=== PATIENT | male | born 1950 | race Caucasian/White ===

== ENCOUNTER 2019-11-28 11:48 | Inpatient (IN) ==
[2019-11-28] MEDS: Carbidopa/Levodopa 25/100 TABLET PO SCH (17:09)
[2019-11-29] MEDS: Acetaminophen 325 MG TABLET PO PRN ×3 (02:44→23:46)
[2019-11-29] MEDS: Aspirin 325 MG TABLET PO SCH (08:31)
[2019-11-29] MEDS: Carbidopa/Levodopa 25/100 TABLET PO SCH ×3 (08:31→16:39)
[2019-11-29] MEDS: Cyanocobalamin (B-12) 1,000 MCG TABLET PO SCH (08:31)
[2019-11-30] MEDS: Acetaminophen 325 MG TABLET PO PRN ×2 (05:46→17:14)
[2019-11-30 08:48] LABS: Basophils % 0.7 %; Eosinophils # 0.1 K/mcL (0.0-0.6); Eosinophils % 2.5 %; Hematocrit 46.3 % (37.5-50.1); Hemoglobin 16.2 g/dL (12.9-16.9); Lymphocytes # 0.9 K/mcL (0.6-4.6); Lymphocytes % 19.5 %; Mean Corpuscular Volume 88.7 fL (83.0-100.0); Mean Platelet Volume 9.7 fL (9.4-12.4); Monocytes # 0.4 K/mcL (0.0-1.3); Monocytes % 8.6 %; Platelet Count 246 K/mcL (140-400); Red Blood Count 5.22 M/mcL (4.19-5.50); Red Cell Distribution Width 12.2 % (11.5-14.5); Segmented Neutrophils % 68.7 %; White Blood Count 4.4 K/mcL (4.3-11.1)
[2019-11-30] MEDS: Aspirin 325 MG TABLET PO SCH (08:53)
[2019-11-30] MEDS: Cyanocobalamin (B-12) 1,000 MCG TABLET PO SCH (08:53)
[2019-11-30] MEDS: Carbidopa/Levodopa 25/100 TABLET PO SCH ×3 (08:55→17:14)
[2019-11-30 09:12] LABS: Alanine Aminotransferase 12 Units/L (7-52); Albumin 4.1 g/dL (3.5-5.7); Albumin/Globulin Ratio 1.9 (1.1-2.2); Alkaline Phosphatase 102 Units/L (34-104); Aspartate Amino Transferase 15 Units/L (13-39); BUN/Creatinine Ratio 16 (6-26); Blood Urea Nitrogen 15 mg/dL (8-23); Calcium 9.6 mg/dL (8.6-10.3); Carbon Dioxide 29 mEq/L (23-29); Chloride 100 mEq/L (98-107); Globulin 2.2 g/dL (2.4-3.5); Glucose 105 mg/dL (70-105); Magnesium 2.1 mg/dL (1.6-2.6); Osmolality,Calculated 287 (280-300); Potassium 3.7 mEq/L (3.5-5.1); Sodium 138 mEq/L (136-145); Total Protein 6.3 g/dL (6.4-8.9); eGFR For African Americans > 60 (> 60); eGFR For Non-African Americans > 60 (> 60)
[2019-11-30] MEDS: Ondansetron ODT 4 MG TAB.RAPDIS SL PRN (11:25)
[2019-11-30 12:20] LABS: Bilirubin,Urine Negative (Negative); Blood,Urine Negative (Negative); Clarity,Urine Clear (Clear); Color,Urine Yellow (Yellow); Glucose,Urine (UA) Normal (Normal); Ketones,Urine Negative (Negative); Leukocyte Esterase,Urine Negative (Negative); Nitrite,Urine Negative (Negative); Protein,Urine Negative (Neg-Trace); Specific Gravity,Urine 1.025 (1.010-1.025); Urobilinogen,Urine Normal (Normal)
[2019-11-30] MEDS: Melatonin 3 MG TABLET PO PRN (22:41)
[2019-12-01] MEDS: Cyanocobalamin (B-12) 1,000 MCG TABLET PO SCH (08:07)
[2019-12-01] MEDS: Aspirin 325 MG TABLET PO SCH (08:07)
[2019-12-01] MEDS: Carbidopa/Levodopa 25/100 TABLET PO SCH ×3 (08:13→16:24)
[2019-12-01] MEDS: Melatonin 3 MG TABLET PO PRN (20:39)
[2019-12-01] MEDS: Acetaminophen 325 MG TABLET PO PRN (23:20)
[2019-12-02] MEDS ORDERED: Melatonin 3 MG TABLET PO ONE (00:58)
[2019-12-02] MEDS: Ondansetron ODT 4 MG TAB.RAPDIS SL PRN (08:27)
[2019-12-02] MEDS: Aspirin 325 MG TABLET PO SCH (09:20)
[2019-12-02] MEDS: Carbidopa/Levodopa 25/100 TABLET PO SCH ×3 (09:20→17:53)
[2019-12-02] MEDS: Acetaminophen 325 MG TABLET PO PRN (09:20)
[2019-12-02] MEDS: Cyanocobalamin (B-12) 1,000 MCG TABLET PO SCH (09:20)
[2019-12-02] MEDS: Melatonin 3 MG TABLET PO PRN (21:13)
[2019-12-03] MEDS: Cyanocobalamin (B-12) 1,000 MCG TABLET PO SCH (08:34)
[2019-12-03] MEDS: Carbidopa/Levodopa 25/100 TABLET PO SCH ×3 (08:34→15:54)
[2019-12-03] MEDS: Aspirin 325 MG TABLET PO SCH (08:36)
[2019-12-03] MEDS: Melatonin 3 MG TABLET PO PRN (21:04)
[2019-12-03] MEDS: Acetaminophen 325 MG TABLET PO PRN (22:03)
[2019-12-04] MEDS: Aspirin 325 MG TABLET PO SCH (09:18)
[2019-12-04] MEDS: Cyanocobalamin (B-12) 1,000 MCG TABLET PO SCH (09:19)
[2019-12-04] MEDS: Carbidopa/Levodopa 25/100 TABLET PO SCH ×3 (09:19→16:00)
[2019-12-04] MEDS: Acetaminophen 325 MG TABLET PO PRN ×2 (15:59→20:10)
[2019-12-05] MEDS: Acetaminophen 325 MG TABLET PO PRN ×2 (03:35→20:01)
[2019-12-05] MEDS: Aspirin 325 MG TABLET PO SCH (09:49)
[2019-12-05] MEDS: Cyanocobalamin (B-12) 1,000 MCG TABLET PO SCH (09:49)
[2019-12-05] MEDS: Carbidopa/Levodopa 25/100 TABLET PO SCH ×3 (09:51→16:31)
[2019-12-05] MEDS ORDERED: Glycerin RECTAL Suppository RC PRN (14:25)
[2019-12-06] MEDS: Acetaminophen 325 MG TABLET PO PRN ×2 (03:03→20:30)
[2019-12-06] MEDS: Cyanocobalamin (B-12) 1,000 MCG TABLET PO SCH (08:49)
[2019-12-06] MEDS: Carbidopa/Levodopa 25/100 TABLET PO SCH ×3 (08:49→17:14)
[2019-12-06] MEDS: Aspirin 325 MG TABLET PO SCH (08:50)
[2019-12-06] MEDS: Melatonin 3 MG TABLET PO PRN (20:31)
[2019-12-07] MEDS: Acetaminophen 325 MG TABLET PO PRN ×3 (06:45→23:32)
[2019-12-07] MEDS: Cyanocobalamin (B-12) 1,000 MCG TABLET PO SCH (08:55)
[2019-12-07] MEDS: Carbidopa/Levodopa 25/100 TABLET PO SCH ×3 (08:55→15:32)
[2019-12-07] MEDS: Aspirin 325 MG TABLET PO SCH (08:55)
[2019-12-08 08:17] LABS: Basophils % 0.8 %; Eosinophils # 0.1 K/mcL (0.0-0.6); Eosinophils % 2.5 %; Hematocrit 45.7 % (37.5-50.1); Hemoglobin 16.2 g/dL (12.9-16.9); Immature Granulocytes % 0.4 % (0-4); Lymphocytes # 0.7 K/mcL (0.6-4.6); Lymphocytes % 14.3 %; Mean Corpuscular HGB Conc 35.4 g/dL (31.6-35.5); Mean Corpuscular Volume 90.1 fL (83.0-100.0); Mean Platelet Volume 9.4 fL (9.4-12.4); Monocytes # 0.3 K/mcL (0.0-1.3); Monocytes % 6.3 %; Neutrophils # 3.7 K/mcL (1.6-8.9); Platelet Count 226 K/mcL (140-400); Red Blood Count 5.07 M/mcL (4.19-5.50); Red Cell Distribution Width 12.5 % (11.5-14.5); Segmented Neutrophils % 75.7 %; White Blood Count 4.9 K/mcL (4.3-11.1)
[2019-12-08 08:34] LABS: BUN/Creatinine Ratio 14 (6-26); Blood Urea Nitrogen 12 mg/dL (8-23); Calcium 9.6 mg/dL (8.6-10.3); Carbon Dioxide 31 mEq/L (23-29); Chloride 102 mEq/L (98-107); Glucose 99 mg/dL (70-105); Osmolality,Calculated 292 (280-300); Potassium 3.8 mEq/L (3.5-5.1); Sodium 141 mEq/L (136-145); eGFR For African Americans > 60 (> 60); eGFR For Non-African Americans > 60 (> 60)
[2019-12-08] MEDS: Aspirin 325 MG TABLET PO SCH (08:45)
[2019-12-08] MEDS: Cyanocobalamin (B-12) 1,000 MCG TABLET PO SCH (08:46)
[2019-12-08] MEDS: Carbidopa/Levodopa 25/100 TABLET PO SCH ×3 (11:13→15:54)
[2019-12-08] MEDS: Acetaminophen 325 MG TABLET PO PRN ×2 (13:17→19:48)
[2019-12-09] MEDS: Melatonin 3 MG TABLET PO PRN (03:02)
[2019-12-09] MEDS: Acetaminophen 325 MG TABLET PO PRN ×2 (03:02→16:08)
[2019-12-09] MEDS: Cyanocobalamin (B-12) 1,000 MCG TABLET PO SCH (09:13)
[2019-12-09] MEDS: Aspirin 325 MG TABLET PO SCH (09:13)
[2019-12-09] MEDS: Carbidopa/Levodopa 25/100 TABLET PO SCH ×3 (09:15→16:08)
[2019-12-10] MEDS: Acetaminophen 325 MG TABLET PO PRN ×2 (03:40→11:25)
[2019-12-10] MEDS: Aspirin 325 MG TABLET PO SCH (08:47)
[2019-12-10] MEDS: Cyanocobalamin (B-12) 1,000 MCG TABLET PO SCH (08:47)
[2019-12-10] MEDS: Carbidopa/Levodopa 25/100 TABLET PO SCH ×3 (11:04→17:49)
[2019-12-10] MEDS: Ondansetron ODT 4 MG TAB.RAPDIS SL PRN (12:15)
[2019-12-10] MEDS: Melatonin 3 MG TABLET PO PRN (20:53)
[2019-12-11] MEDS: Aspirin 325 MG TABLET PO SCH (08:59)
[2019-12-11] MEDS: Cyanocobalamin (B-12) 1,000 MCG TABLET PO SCH (08:59)
[2019-12-11] MEDS: Carbidopa/Levodopa 25/100 TABLET PO SCH ×3 (09:00→18:01)
[2019-12-11] MEDS: Ondansetron ODT 4 MG TAB.RAPDIS SL PRN (20:45)
[2019-12-11] MEDS: Melatonin 3 MG TABLET PO PRN (20:51)
[2019-12-11] MEDS: Acetaminophen 325 MG TABLET PO PRN (22:47)
[2019-12-12] MEDS: Aspirin 325 MG TABLET PO SCH (08:58)
[2019-12-12] MEDS: Carbidopa/Levodopa 25/100 TABLET PO SCH ×3 (08:59→16:07)
[2019-12-12] MEDS: Cyanocobalamin (B-12) 1,000 MCG TABLET PO SCH (08:59)
[2019-12-12] MEDS: Acetaminophen 325 MG TABLET PO PRN ×2 (11:21→20:23)
[2019-12-13 07:15] VITALS: BP 139/85
[2019-12-13] MEDS: Ondansetron ODT 4 MG TAB.RAPDIS SL PRN (07:38)
[2019-12-13] MEDS: Cyanocobalamin (B-12) 1,000 MCG TABLET PO SCH (07:38)
[2019-12-13] MEDS: Acetaminophen 325 MG TABLET PO PRN (07:38)
[2019-12-13] MEDS: Aspirin 325 MG TABLET PO SCH (07:38)
[2019-12-13] MEDS: Carbidopa/Levodopa 25/100 TABLET PO SCH (07:40)
== END 2019-12-13 10:35 | disposition home health service (06) | DRG 69 ==
LOC: INPPIK 13:40
PROVIDERS: ADMIT Family Medicine; ATTEND Family Medicine